=== PATIENT | female | born 1975 | race African-American/Black ===

== ENCOUNTER 2016-06-17 16:43 | Emergency (ER) | payer BC ==
[~2016-06-17] VITALS: Ht 154.9 cm; Wt 85.3 kg
[~2016-06-17 16:43] MED LIST: ALBUTEROL SULF8.5 GM IH; BENTYL20 MG PO; CIPRO500 MG PO; CORTISPORIN EAR10 ML RIGHT EAR; EXCEDRIN EXTRA1 EACH PO; ZOFRAN ODT4 MG PO
[2016-06-17 19:06] VITALS: BP 113/77
== END 2016-06-17 19:06 | disposition home or self-care (01) ==
LOC: EME 16:43
DX: G43.909 Migraine, unspecified, not intractable, without status migrainosus (principal); J45.909 Unspecified asthma, uncomplicated
CPT/HCPCS: 99281; 99284; J1200; J1885; J2765; J7030